=== PATIENT | male | born 1980 | race Caucasian/White ===

== ENCOUNTER 2020-02-06 17:42 | Emergency (ER) | payer OTHER, SELFPAY ==
--- NOTE | ~2020-02-06 | XR_ITS ---
EXAMINATION: XR chest 2V 02/06/2020 18:12 INDICATION: Dry cough. Chest congestion. Left-sided chest pain. PROCEDURE: 2 view chest COMPARISON: Chest dated 03/27/2019 FINDINGS: The lungs are clear. The cardiomediastinal silhouette is within normal limits. There are no pleural effusions. There is no pneumothorax suspected. IMPRESSION: 1: NO ACUTE CARDIOPULMONARY DISEASE. Reviewed, dictated and finalized at location A.
[2020-02-06 17:58] VITALS: BP 133/90; PULSE 76; RESP 18; TEMP 36.5; O2SAT 100
--- NOTE | 2020-02-06 18:15 | ED.GENADULT ---
HPI - General Adult General Chief complaint: Upper Respiratory Infection Stated complaint: congestion of lung History of Present Illness HPI narrative: Patient is a 39-year-old male who presents to the urgent care via POV for evaluation of painful cough that began approximately 3 weeks ago. He also reports left-sided pleuritic pain and a rattling sound with breathing. He states some days is good and some days it is really bad . Most painful day was Monday. Pain is improved since then., Patient reports taking clindamycin 3 times a day for 7 days and states symptoms improved for approximately 1 week. No relief with Tylenol. Unable to take ibuprofen due to allergy to NSAIDs. Called his PCP and had a telemetry med appointment today. PCP recommended urgent care for imaging prompting today's visit. History of pleurisy x2. He is unable to recall symptoms of pleurisy since his last episode was years ago. Denies history of COPD, bronchitis, asthma, and pneumonia. Denies current/past tobacco use. Pertinent negatives: fever, sweats, chills, change in appetite, fatigue, skin color changes, headache, nasal congestion/discharge, dizziness, lymphadenopathy, sinus problems, ear pain/drainage, chest pain, heart murmurs, heart palpitations, shortness of breath, wheezing, cyanosis, hemoptysis, hoarseness, orthopnea, pleuritic pain, nausea, vomiting, diarrhea, and myalgias. Related Data Home Medications Medication Instructions Recorded Confirmed glipizide mg 02/06/20 rizatriptan mg 02/06/20 Allergies Allergy/AdvReac Type Severity Reaction Status Date / Time prochlorperazine Allergy Unknown Unknown Verified 03/23/19 13:22 NSAIDS (Non-Steroidal AdvReac Mild Other Verified 10/11/18 18:23 Anti-Inflamma Review of Systems Review of Systems: Narrative: All other systems reviewed and are negative PMFSH Comments I have reviewed and agree with the patient's past medical, surgical, social, and family hx as documented by the RN. There is no relevant family history pertinent to the presenting complaint. Exam Narrative: Exam Narrative: GENERAL: Well-appearing, well-nourished, and in no acute distress. HEAD: Normocephalic, atraumatic. No sinus tenderness or facial swelling appreciated. EYES: PERRLA and EOMI. No evidence of erythema, swelling, or drainage. ENT: Bilateral external ears and ear canals normal. Bilateral TMs are normal.No TM perforation. Nares clear, no rhinorrhea or epistaxis. Bilateral turbinates without erythema/ swelling. Mucous membranes moist and pink. Uvula is midline without erythema and swelling. No evidence of petechial rash, cobblestoning, lesions, ulcers, erythema, swelling, exudates, peritonsillar abscess, tenting, or drooling. Breath odor and voice normal. NECK: Supple. No Lymphadenopathy or nuchal rigidity appreciated. CHEST: Bilateral lung jennings are clear to auscultation. No respiratory distress. No evidence of cough or pleuritic cp upon examination. HEART: Regular rate and rhythm. No murmur, gallop, or rub heard. EXTREMITIES: Normal range of motion. No edema. SKIN: Warm, dry, no rash. NEURO: No focal deficits. Alert and oriented x3. Course Vital Signs Vital signs: Vital Signs Temperature 97.7 F 02/06/20 17:58 Pulse Rate 76 02/06/20 17:58 Respiratory Rate 18 02/06/20 17:58 Blood Pressure 133/90 02/06/20 17:58 Pulse Oximetry 100 02/06/20 17:58 Temperature 97.7 F 02/06/20 17:58 Pulse Rate 76 02/06/20 17:58 Respiratory Rate 18 02/06/20 17:58 Blood Pressure 133/90 02/06/20 17:58 Pulse Oximetry 100 02/06/20 17:58 Medical Decision Making Medical Records Medical records reviewed: Yes I reviewed the patient's medical records. Vital Signs Vital Signs: Vital Signs Temperature 97.7 F 02/06/20 17:58 Pulse Rate 76 02/06/20 17:58 Respiratory Rate 18 02/06/20 17:58 Blood Pressure 133/90 02/06/20 17:58 Pulse Oximetry 100 02/06/20 17:58
--- NOTE | 2020-02-06 18:17 | PC.NURSE ---
[id number] went to xray
== END 2020-02-06 19:00 | disposition home or self-care (01) ==
PROVIDERS: Emergency Provider Nurse Practitioner Family
DX: R09.1 Pleurisy (principal); K76.0 Fatty (change of) liver, not elsewhere classified; E11.9 Type 2 diabetes mellitus without complications
CPT/HCPCS: 71046; 99213; G0463

== ENCOUNTER 2020-07-25 12:15 | Emergency (ER) | payer OTHER, SELFPAY ==
[2020-07-25 12:28] VITALS: BP 144/82; PULSE 98; RESP 16; TEMP 37.1; O2SAT 99
--- NOTE | 2020-07-25 12:37 | ED.GENADULT ---
HPI - General Adult General Chief complaint: Upper Respiratory Infection Stated complaint: possible sinus infection Time Seen by Provider: 07/25/20 12:37 Source: patient and RN notes reviewed Mode of arrival: ambulatory Limitations: no limitations History of Present Illness HPI narrative: 40-year-old male presents with complaints of upper respiratory infection, sneezing, facial congestion, facial pressure, intermittent headache (not the worst of his life) and intermittent dizziness for the past 2.5 weeks. Flonase and Claritin with some relief. No facial swelling. No cough. Nasal congestion and rhinorrhea. No sore throat. No high fevers, drooling, neck or throat swelling. No voice change. No nausea, vomiting, or abdominal pain. Tolerating liquids well. Denies chills, dyspnea, difficulty swallowing, jaw pain, dental pain, foreign body sensation, and rash. Exacerbating factors of dizziness consist of changing position too fast turning head from side to side too fast. Relieving factors is sitting still. Denies ear pain, ear itching, ear trauma, trauma to head, syncopal episodes, altered vision, altered speech, confusion, or seizure activity. Denies numbness or tingling in extremities. Denies chest pain or dyspnea. URI symptoms as described above. The patient reports he have not been diagnosed with COVID-19. The patient reports he is not waiting for the results of a COVID-19 lab test. The patient reports he do not have fever, chills, weakness, or fatigue. The patient reports he do not have a worsening cough or shortness of breath. The patient reports he do not have any loss of taste or diarrhea. Denies recent traveling. Denies concerns for COVID-19 or exposures been home with limited outdoor exposure except for essential household needs, work, and return home. At this time, patient is not suspected of having COVID-19. Some parts of this dictation were generated by voice recognition software and may contain typographical and/or grammatical inaccuracies. Related Data Home Medications Medication Instructions Recorded Confirmed glipizide 10 mg PO DAILY 02/06/20 07/25/20 rizatriptan 10 mg PO PRN PRN 02/06/20 07/25/20 fluticasone propionate [Flonase 1 spray INTRANASAL DAILY 07/25/20 07/25/20 Allergy Relief] Allergies Allergy/AdvReac Type Severity Reaction Status Date / Time prochlorperazine Allergy Unknown Unknown Verified 07/25/20 12:33 NSAIDS (Non-Steroidal AdvReac Mild Abdominal Verified 07/25/20 12:33 Anti-Inflamma Pain Review of Systems Review of Systems: Narrative: CONSTITUTIONAL: Denies fever, chills, sweats. EYES: Denies visual changes, redness, discharge. ENT: Complains of rhinorrhea, congestion, facial congestion and pressure. Denies sore throat, otalgia. CARDIOVASCULAR: Denies chest pain, palpitations, edema. RESPIRATORY: Denies dyspnea, wheezing, cough. GASTROINTESTINAL: Denies abdominal pain, nausea, vomiting, diarrhea. GENITOURINARY: Denies dysuria, hematuria, abnormal discharge SKIN: Denies rash or itching. MUSCULOSKELETAL: Denies acute back pain, joint pain, or myalgia. NEUROLOGIC: Denies numbness, or focal weakness. Complains of intermittent [place] and dizziness. PSYCHIATRIC: Denies anxiety or depression. All other systems reviewed & are unremarkable except as noted in HPI and below. [facility] Past Medical History Medical History (Updated 07/25/20 @ 12:55 by KYLER Moya) Diabetes History of sinus problem Hx of migraines Kidney stones Sleep apnea with use of continuous positive airway pressure (CPAP) Surgical History Surgical History (Updated 07/25/20 @ 12:49 by KYLER Moya) History of oral surgery Family History Family History (Updated 07/25/20 @ 12:50 by KYLER Moya) Father Lung cancer Mother Diabetes mellitus Social History Social History (Updated 07/25/20 @ 12:50 by KYLER Moya) Smoking status: Former smoker Tobacco type:
[2020-07-25 12:58] VITALS: BP 124/86; PULSE 89
[2020-07-25 13:00] VITALS: BP 118/90; BP 122/88; PULSE 101; PULSE 92
== END 2020-07-25 13:10 | disposition home or self-care (01) ==
PROVIDERS: Emergency Provider Nurse Practitioner Family
DX: R42 Dizziness and giddiness (principal); J01.00 Acute maxillary sinusitis, unspecified; Z87.891 Personal history of nicotine dependence; E11.9 Type 2 diabetes mellitus without complications; G47.30 Sleep apnea, unspecified
CPT/HCPCS: 99213; G0463

== ENCOUNTER 2021-10-05 13:19 | Emergency (ER) | payer OTHER, SELFPAY ==
[2021-10-05 13:28] VITALS: BP 130/93; PULSE 97; RESP 16; TEMP 37.3; O2SAT 99
--- NOTE | 2021-10-05 13:56 | ED.URI ---
HPI - URI/Sore Throat General Chief Complaint: Upper Respiratory Infection Stated Complaint: Sinus Time Seen by Provider: 10/05/21 13:56 Source: patient and RN notes reviewed Mode of arrival: ambulatory Limitations: no limitations History of Present Illness HPI Narrative: Ankit is a 41-year-old male patient who ambulated into the [facility]. Patient has a 5-day history of sore throat and nasal congestion. Patient states his sore throat lasted 3 days and is now better. Patient states his sinuses pressure and drainage has stayed the same. He does use a CPAP at night. Patient has used DayQuil at home. MD elicited complaint: nasal congestion Related Data Home Medications Medication Instructions Recorded Confirmed rizatriptan 10 mg PO DAILY 10/05/21 10/05/21 semaglutide [Rybelsus] 3 mg PO DIRECTED 10/05/21 10/05/21 semaglutide [Rybelsus] 7 mg PO DAILY 10/05/21 10/05/21 Allergies Allergy/AdvReac Type Severity Reaction Status Date / Time prochlorperazine Allergy Unknown Unknown Verified 10/05/21 13:30 NSAIDS (Non-Steroidal AdvReac Mild Abdominal Verified 10/05/21 13:30 Anti-Inflamma Pain Review of Systems Review of Systems: CONSTITUTIONAL: Denies body aches, fever, chills, or sweats. EYES: Denies visual changes, redness, or discharge. ENT: + rhinorrhea,+ congestion,+ sore throat, denies otalgia. CARDIOVASCULAR: Denies chest pain, palpitations, or edema. RESPIRATORY: Denies cough or dyspnea. GASTROINTESTINAL: Denies abdominal pain, nausea, vomiting, or diarrhea. GENITOURINARY: Denies dysuria or hematuria. SKIN: Denies rash, itching, or wounds. MUSCULOSKELETAL: Denies back pain, joint pain, or myalgia. NEUROLOGIC: Denies headache, numbness, tingling, or weakness. PSYCH: Denies depression or anxiety. All systems reviewed & are unremarkable except as noted in HPI and below PMFSH Past Medical History Medical History Diabetes History of sinus problem Hx of migraines Kidney stones Sleep apnea with use of continuous positive airway pressure (CPAP) Surgical History Surgical History History of oral surgery Family History Family History Father Lung cancer Mother Diabetes mellitus Social History Social History Smoking status: Former smoker Tobacco type: cigarettes Smoking end date: 10/30/11 Alcohol intake: current Substance use: current Substance use type: marijuana Gender identity (if verbalized by the patient): Male Comments At time of signature, I have reviewed and agree with nursing past medical, surgical, social and family history unless otherwise noted. Please see nursing chart for further information. There is no relevant family history pertinent to the presenting complaint Exam Narrative: GENERAL: Well-appearing, well-nourished, and in no acute distress. HEAD: Normocephalic, atraumatic. EYES: EOMI. No redness or drainage. Conjunctivae normal. ENT: Mucous membranes pink and moist. Nasal membranes erythematous with clear drainage. Posterior pharynx is erythemic with mild edema and moderate drainage. TMs normal bilaterally. Throat normal. Uvula midline. NECK: Normal AROM. Supple. No lymphadenopathy. CHEST: No respiratory distress. Clear to auscultation. MUSCULOSKELETAL: No bony tenderness. EXTREMITIES: Normal range of motion. No edema. SKIN: Warm, dry, no rash. Capillary refill normal. Normal skin turgor. NEURO: No focal deficits. Alert and oriented x3. Gait steady. PSYCH: Normal affect. No signs of depression or anxiety. Course Vital Signs Vital signs: Vital Signs Temperature 37.3 C 10/05/21 13:28 Pulse Rate 97 10/05/21 13:28 Respiratory Rate 16 10/05/21 13:28 Blood Pressure 130/93 H 10/05/21 13:28 Pulse Oximetry 99 10/05/21 13:2
== END 2021-10-05 14:13 | disposition home or self-care (01) ==
PROVIDERS: Emergency Provider Nurse Practitioner Family
DX: J00 Acute nasopharyngitis [common cold] (principal); Z87.891 Personal history of nicotine dependence; E11.9 Type 2 diabetes mellitus without complications; G47.30 Sleep apnea, unspecified
CPT/HCPCS: 99211; G0463

== ENCOUNTER 2021-12-12 08:53 | Emergency (ER) | payer OTHER, SELFPAY ==
--- NOTE | ~2021-12-12 | CT_ITS ---
EXAMINATION: CT abdomen pelvis wo con DATE: 12/12/2021 09:35 INDICATION: Low abdominal pain. Right flank pain. Nausea. Diarrhea. TECHNIQUE: Computed tomography (CT) of the abdomen and pelvis was performed without intravenous contr ast. Automated exposure control and iterative reconstruction technique were employed. The dose-length product was 454.56 mGy-cm. COMPARISON: None. FINDINGS: The visualized portions of the lung bases demonstrate mild atelectasis. No pleural effusion . The heart size is normal. No pericardial effusion. There is diffuse hepatic steatosis. The gallblad gee, spleen, pancreas, and adrenal glands are normal. There is mild right hydronephrosis and hydroure ter. There is a 4 mm stone in proximal right ureter. There are 2 mm and 1 mm stones in left kidney. T here are no dilated loops of bowel. The appendix is normal. There are no pathologically enlarged lymp h nodes. There is no free intraperitoneal fluid. There is mild thoracolumbar spondylosis. IMPRESSION: 1. 4 mm stone in proximal right ureter with mild right hydronephrosis and proximal hydroureter. 2. Small nonobstructing left kidney stones. Reviewed, dictated and finalized at location A. IMPRESSION: 1. 4 mm stone in proximal right ureter with mild right hydronephrosis and proxi mal hydroureter. 2. Small nonobstructing left kidney stones.
[2021-12-12 08:59] VITALS: BP 121/97; PULSE 87; RESP 20; TEMP 37.1; O2SAT 100
[2021-12-12 09:13] LABS: Basophils Percent Auto 0.4 % (0.2-1.2); Eosinophils Absolute Auto 0.1 K/mm3 (0-0.3); Eosinophils Percent Auto 1.7 % (0-4.4); Hematocrit 47.2 % (42.0-52.0); Hemoglobin 16.5 g/dL (14.0-18.0); Immature Granulocyte Absolute 0.01 K/mm3 (0.00-0.031); Immature Granulocyte Percent A 0.1 % (0-0.5); Lymphocytes Absolute Auto 2.13 K/mm3 (0.9-3.2); Lymphocytes Percent Auto 30.8 % (18.3-44.2); Mean Corpuscular Hemoglobin 28.9 pg (26-34); Mean Corpuscular Volume 82.8 fl (80-100); Mean Platelet Volume 10.1 fl (7.4-10.4); Monocytes Absolute Auto 0.4 K/mm3 (0.1-0.6); Monocytes Percent Auto 6.2 % (2.6-8.5); Neutrophils Absolute Auto 4.2 K/mm3 (1.3-6.7); Neutrophils Percent Auto 60.8 % (45.5-73.1); Platelet Count Result 187 k/mm3 (150-375); Red Cell Distribution Width 12.4 % (11.5-14.5); White Blood Count 6.9 K/mm3 (4.5-10.0)
[2021-12-12 09:23] LABS: Alanine Aminotransferase 44 U/L (4-50); Albumin Level 4.7 g/dL (3.5-5.1); Alkaline Phosphatase 78 U/L (38-126); Anion Gap 13 mmol/L (8-16); Aspartate Amino Transferase 31 U/L (17-59); Bilirubin,Total 1.2 mg/dL (0.2-1.3); Blood Urea Nitrogen 10 mg/dL (9-20); Calcium 9.5 mg/dL (8.4-10.2); Carbon Dioxide 24 mmol/L (22-30); Chloride 103 mmol/L (98-107); Estimated CRCL calculation 69 ml/min; Estimated Glomerular Filt Rate > 60; Glucose 161 mg/dL (65-110); Lipase 306 U/L (23-300); Potassium 3.7 mmol/L (3.4-5.0); Sodium 140 mmol/L (137-145)
--- NOTE | 2021-12-12 09:48 | ED.ABDPAIN ---
HPI - Abdominal Pain General Chief Complaint: Abdominal Pain Stated Complaint: abd pain/flank pain Time Seen by Provider: 12/12/21 09:20 Source: patient and family Limitations: no limitations History of Present Illness HPI narrative: Patient is 41 years old white male presents with pain at the right abdomen right flank that started few hours prior to arrival associated with nausea and vomiting. History of kidney stone. Patient denies any fever, chills. Related Data Home Medications Medication Instructions Recorded Confirmed rizatriptan 10 mg PO DAILY 10/05/21 10/05/21 semaglutide [Rybelsus] 3 mg PO DIRECTED 10/05/21 10/05/21 semaglutide [Rybelsus] 7 mg PO DAILY 10/05/21 10/05/21 Allergies Allergy/AdvReac Type Severity Reaction Status Date / Time prochlorperazine Allergy Unknown Unknown Verified 10/05/21 13:30 NSAIDS (Non-Steroidal AdvReac Mild Abdominal Verified 10/05/21 13:30 Anti-Inflamma Pain Review of Systems Review of Systems: CONSTITUTIONAL: Denies fever, chills, or sweats. EYES: Denies visual changes, redness, or discharge. ENT: Denies rhinorrhea, congestion, sore throat, or otalgia. CARDIOVASCULAR: Denies chest pain, palpitations, or edema. RESPIRATORY: Denies cough or dyspnea. GASTROINTESTINAL: Denies abdominal pain, nausea, vomiting, or diarrhea. GENITOURINARY: Denies dysuria or hematuria. SKIN: Denies rash or itching. MUSCULOSKELETAL: Denies back pain, joint pain, or myalgia. NEUROLOGIC: Denies headache, numbness, or weakness. PSYCHIATRIC: Denies anxiety or depression. [facility] Past Medical History Medical History Diabetes History of sinus problem Hx of migraines Kidney stones Sleep apnea with use of continuous positive airway pressure (CPAP) Surgical History Surgical History History of oral surgery Family History Family History Father Lung cancer Mother Diabetes mellitus Social History Social History Smoking status: Former smoker Tobacco type: cigarettes Smoking end date: 10/30/11 Alcohol intake: current Substance use: current Substance use type: marijuana Gender identity (if verbalized by the patient): Male Exam Narrative: General appearance: Well-developed, well-nourished Skin: Normal color Head: Normocephalic, nontraumatic Eyes: Clear conjunctiva ENT: Oropharynx normal, ears normal, nose normal Neck: Supple, nontender Chest and respiratory: Airway patent, no respiratory distress, no accessory muscle use Heart: Regular rate/rhythm Abdomen: Moderate tenderness right flank and right abdomen Vascular: Normal peripheral pulses, normal capillary refill. Musculoskeletal: Normal range of motion, nontender back Neurologic: Alert and oriented ?3, [employer] is normal as tested, no gross motor deficit Course Course Emergency Course: Improving Patient presents with pain at the right flank area, right abdomen, CT scan showed 4 mm right proximal ureter, Patient received normal saline 1 L, Toradol 30 mg IV, Dilaudid 0.5 mg IV, Zofran 4 mg IV and 0.4 mg of Flomax orally. Currently patient is pain-free. Patient was advised to strain his urine and to follow-up with urologist as soon as possible. Vital Signs Vital signs: Vital Signs Temperature 37.1 C 12/12/21 08:59 Pulse Rate 87 12/12/21 08:59 Respiratory Rate 20 12/12/21 08:59 Blood Pressure 121/97 H 12/12/21 08:59 Pulse Oximetry 100 12/12/21 08:59 Temperature 37.1 C 12/12/21 08:59 Pulse Rate 87 12/12/21 08:59 Respirator
[2021-12-12 09:57] LABS: Add Urine Microscopic? YES; Appearance Urine Cloudy (Clear); Bilirubin Urine 1+ (Negative); Blood Urine 3+ (Negative); Color Urine Amber (Yellow); Glucose Urine UA Negative (Negative); Ketones Urine 1+ mg/dL (Negative); Leukocyte Esterase Ur Negative LEU/UL (Negative); Nitrate Urine Negative (Negative); Protein Urine 2+ mg/dL (Negative); Specific Grav Ur 1.025 (1.001-1.035); Urobilinogen Urine 0.2 mg/dL (<2.0); pH Urine 5.5 (5.0-9.0)
[2021-12-12 09:59] LABS: Bacteria Urine Trace /hpf; Budding Yeast Urine Present /hpf; Mucus Urine Rare /lpf; RBC Urine >75 /hpf (0-2); WBC Urine 0-3 /hpf
[2021-12-12] MEDS: SODIUM CHLORIDE 0.9% IV 1,000 ML 999 ML IV CONT (10:20)
[2021-12-12] MEDS: TAMSULOSIN HCL 0.4 MG CAPSULE PO (10:21)
[2021-12-12] MEDS: KETOROLAC 30 MG/ML VIAL (*BKC) IV PUSH (10:21)
[2021-12-12] MEDS: ONDANSETRON INJ 4 MG/2 ML VIAL IV PUSH (10:21)
[2021-12-12 11:27] VITALS: BP 142/88; PULSE 78; RESP 18; O2SAT 98
== END 2021-12-12 11:29 | disposition home or self-care (01) ==
PROVIDERS: Emergency Provider Emergency Medicine
DX: N13.2 Hydronephrosis with renal and ureteral calculous obstruction (principal); E11.9 Type 2 diabetes mellitus without complications; G47.30 Sleep apnea, unspecified; Z87.442 Personal history of urinary calculi; Z87.891 Personal history of nicotine dependence; Z79.84 Long term (current) use of oral hypoglycemic drugs
CPT/HCPCS: 36415; 74176; 80053; 81001; 83690; 85025; 96361; 96374; 96375; 99284; A9270; J1885; J2405; J7030

== ENCOUNTER 2022-02-03 15:49 | Emergency (ER) | payer OTHER, SELFPAY ==
[2022-02-03 15:58] VITALS: BP 120/80; PULSE 94; RESP 16; TEMP 36.4; O2SAT 99
--- NOTE | 2022-02-03 16:03 | ED.URI ---
HPI - URI/Sore Throat General Chief Complaint: Upper Respiratory Infection Stated Complaint: Cough,congestion Time Seen by Provider: 02/03/22 16:05 Source: patient and RN notes reviewed Mode of arrival: ambulatory Limitations: no limitations History of Present Illness HPI Narrative: 41 y/o male presented for c/o sinus congestion, scratchy left throat, and nonproductive cough for at least one week. Endorses history of 'completely clogged left sinuses' about one year ago. Takes daily Zyrtec and used neti pot today, has been using DayQuil and NyQuil for symptoms. Denies sob, wheezing, n/v/d/f/c. Denies sick contacts. Vaccinated for flu, boosted for Covid. MD elicited complaint: cough Related Data Home Medications Medication Instructions Recorded Confirmed semaglutide [Rybelsus] 3 mg PO DIRECTED 10/05/21 02/03/22 atorvastatin 10 mg PO DAILY 02/03/22 02/03/22 rizatriptan 10 mg PO DIRECTED 02/03/22 02/03/22 Allergies Allergy/AdvReac Type Severity Reaction Status Date / Time prochlorperazine Allergy Unknown Unknown Verified 02/03/22 15:58 NSAIDS (Non-Steroidal AdvReac Mild Abdominal Verified 02/03/22 15:58 Anti-Inflamma Pain Review of Systems Review of Systems: CONSTITUTIONAL: denies malaise, chills, sweats, fever EYES: Denies visual changes, redness, or discharge ENT: Reports rhinorrhea, congestion, denies sinus pain, otalgia, sore throat CARDIOVASCULAR: Denies chest pain, palpitations, edema RESPIRATORY: Reports cough, post nasal drainage. Denies dyspnea GASTROINTESTINAL: Denies abdominal pain, nausea, vomiting, diarrhea SKIN: Denies rash or itching MUSCULOSKELETAL: denies myalgia NEUROLOGIC: Denies headache PMFSH Past Medical History Medical History Diabetes History of sinus problem Hx of migraines Kidney stones Sleep apnea with use of continuous positive airway pressure (CPAP) Surgical History Surgical History History of oral surgery Family History Family History Father Lung cancer Mother Diabetes mellitus Social History Social History Smoking status: Former smoker Tobacco type: cigarettes Smoking end date: 10/30/11 Alcohol intake: current Substance use: current Substance use type: marijuana Gender identity (if verbalized by the patient): Male Exam Narrative: GENERAL:well appearing HEAD: Normocephalic EYES: conjunctivae clear ENT: Mucous membranes moist. TM pearly jackson with dull light reflex bilaterally; no tragal tenderness. Oropharynx erythematous without lesions or exudate, no drooling, no hoarseness, no trismus, uvula midline. No tripod positioning, muffled voice, soft palate or pharyngeal wall bulging NECK: Supple. No lymphadenopathy CHEST: Clear to auscultation, breath sounds equal. No wheezing, rhonchi, rales, or stridor. No respiratory distress, speaks in full sentences. HEART: Regular rate and rhythm. No murmur heard. SKIN: Warm, dry, no rash. NEURO: Alert and oriented x3. PSYCH: Normal mood and affect Course Course Emergency Course: Patient is aware of diagnosis, understands and agrees to treatment plan. Anticipatory guidance given. Patient agrees to follow-up as directed and is aware of reasons to seek care at the emergency department. Portions of this record may have been created with voice recognition software Level of Care: Express Care Visit Vital Signs Vital signs: Vital Signs Temperature 97.6 F 02/03/22 15:58 Pulse Rate 94 02/03/22 15:58 Respiratory Rate 16 02/03/22 15:58 Blood Pressure 120/80 02/03/22 15:58 Pulse Oximetry 99 02/03/22 15:58 Temperature 97.6 F 02/03/22 15:58 Pulse Rate 94 02/03/22 15:58 Respiratory Rate 16 02/03/22 15:58 Blood Pressure 120/80 02/03/22 15:58 Pulse Oximetry 99 04
== END 2022-02-03 16:20 | disposition home or self-care (01) ==
PROVIDERS: Emergency Provider Nurse Practitioner Family
DX: J06.9 Acute upper respiratory infection, unspecified (principal); Z87.891 Personal history of nicotine dependence; E11.9 Type 2 diabetes mellitus without complications; G47.33 Obstructive sleep apnea (adult) (pediatric)
CPT/HCPCS: 99213; G0463

== ENCOUNTER 2023-02-28 07:46 | Emergency (ER) | payer OTHER, SELFPAY ==
[2023-02-28] VITALS (7 sets, daily range): BP systolic 105–139; BP diastolic 77–92; PULSE 90–103; RESP 12–20; TEMP 36.6; O2SAT 96–100
--- NOTE | ~2023-02-28 | CT_ITS ---
EXAMINATION: CT abdomen pelvis wo con DATE: 02/28/2023 08:08 INDICATION: Left flank pain. TECHNIQUE: Computed tomography (CT) of the abdomen and pelvis was performed without intravenous contr ast. Automated exposure control and iterative reconstruction technique were employed. The dose-length product was 216.22 mGy-cm. COMPARISON: CT abdomen and pelvis 12/12/2021 FINDINGS: The visualized portions of the lung bases demonstrate minimal atelectasis. No pleural effus ion. The heart size is normal. No pericardial effusion. The liver, gallbladder, spleen, pancreas, adr enal glands, and right kidney are normal. There is mild left hydronephrosis. There is a 4 mm stone in proximal left ureter. The prostate is mildly enlarged. The appendix is normal. There are no dilated loops of bowel. There are no pathologically enlarged lymph nodes. There is no free intraperitoneal fl uid. There is mild thoracolumbar spondylosis. IMPRESSION: 1. 4 mm stone in proximal left ureter with mild left hydronephrosis. Reviewed, dictated and finalized at location A.
--- NOTE | 2023-02-28 07:56 | ED.ABDPAIN ---
HPI - Abdominal Pain General Chief Complaint: Abdominal Pain Stated Complaint: abd pain Time Seen by Provider: 02/28/23 07:51 History of Present Illness HPI narrative: 42yoM h/o kidney stones p/w severe pain, n/v starting this AM L flank radiating to groin. Feels like kidney stone but more anterior and on L, worse than usual. Related Data Home Medications Medication Instructions Recorded Confirmed semaglutide 3 mg tablet (Rybelsus) 3 mg PO DIRECTED 10/05/21 02/03/22 atorvastatin 10 mg tablet 10 mg PO DAILY 02/03/22 02/03/22 rizatriptan 10 mg disintegrating 10 mg PO DIRECTED 02/03/22 02/03/22 tablet Allergies Allergy/AdvReac Type Severity Reaction Status Date / Time prochlorperazine Allergy Unknown Unknown Verified 02/28/23 08:05 NSAIDS (Non-Steroidal AdvReac Mild Abdominal Verified 02/28/23 08:05 Anti-Inflamma Pain Review of Systems Review of Systems: CONST: No fever. HEENT: No sore throat C/V: No chest pain RESP: No cough GI: Reports abdominal pain, nausea, vomiting : Left leg pain M/S: Back pain SKIN: No rash. NEURO: [No headache or focal numbness or weakness] PSYCH: [No depression] [facility] Past Medical History Medical History Diabetes History of sinus problem Hx of migraines Kidney stones Sleep apnea with use of continuous positive airway pressure (CPAP) Surgical History Surgical History History of oral surgery Family History Family History Father Lung cancer Mother Diabetes mellitus Social History Social History Smoking status: Former smoker Tobacco type: cigarettes Smoking end date: 10/30/11 Alcohol intake: current Substance use: current Substance use type: marijuana Living arrangements: with family Occupation/Education: occupation Gender identity (if verbalized by the patient): Male Exam Narrative: EXAMINATION OF ORGAN SYSTEMS/BODY AREAS: Constitutional: Vital signs per nursing GENERAL: Appears quite uncomfortable in bed with emesis bag HEAD: Normal with no signs of head trauma. EYES: EOMI, conjunctiva normal ENT: Hearing grossly intact LUNGS: Nonlabored breathing. HEART: [Regular rate and rhythm] ABD: [Soft], [minimally tender to palpation L flank] : No swelling/tenderness to scrotum EXT: Normal range of motion SKIN: [No rashes or lesions.] NEURO: [Alert and oriented x 3. No gross focal sensory or strength deficits.] PSYCH: Normal affect Course Vital Signs Vital signs: Vital Signs Temperature 97.9 F 02/28/23 08:02 Pulse Rate 103 H 02/28/23 08:02 Respiratory Rate 20 02/28/23 08:02 Blood Pressure 139/92 H 02/28/23 08:02 Pulse Oximetry 100 02/28/23 08:02 Oxygen Delivery Room Air 02/28/23 08:02 Temperature 97.9 F 02/28/23 08:02 Pulse Rate 90 02/28/23 09:34 Respiratory Rate 16 02/28/23 10:31 Blood Pressure 105/77 02/28/23 10:31 Pulse Oximetry 98 02/28/23 10:31 Oxygen Delivery Room Air 02/28/23 08:02 MDM - Abdominal Pain MDM Narrative Medical decision making narrative: ED COURSE AND MEDICAL DECISION MAKIN-year-old presenting to the emergency department for acute flank pain, symptoms are concerning for likely renal colic versus pyelonephritis. Urinalysis is ordered. Zofran, Tylenol are ordered, Patient declines any stronger pain medicine. CT scan of the abdomen/pelvis is ordered. Labs are remarkable for: Normal creatinine, blood in urine. CT scan of the abdomen/pelvis is reviewed by myself and interpreted by radiology: 4 mm stone left Proximal ureter. On reevaluation, the patient still having some pain but appears more comfortable. She decision-making the patient regarding admission for pain control versus follow-up with urology outpatient, and he would prefer to follow-up outpat
[2023-02-28 08:05] LABS: Basophils Percent Auto 0.6 % (0.2-1.2); Eosinophils Absolute Auto 0.1 K/mm3 (0-0.3); Hematocrit 45.4 % (42.0-52.0); Hemoglobin 15.9 g/dL (14.0-18.0); Immature Granulocyte Absolute 0.02 K/mm3 (0.00-0.031); Immature Granulocyte Percent A 0.3 % (0-0.5); Lymphocytes Absolute Auto 1.77 K/mm3 (0.9-3.2); Lymphocytes Percent Auto 25.5 % (18.3-44.2); Mean Corpuscular Hemoglobin 29.7 pg (26-34); Mean Corpuscular Volume 84.9 fl (80-100); Mean Platelet Volume 10.5 fl (7.4-10.4); Monocytes Absolute Auto 0.4 K/mm3 (0.1-0.6); Monocytes Percent Auto 6.3 % (2.6-8.5); Neutrophils Absolute Auto 4.6 K/mm3 (1.3-6.7); Neutrophils Percent Auto 66.3 % (45.5-73.1); Platelet Count Result 184 k/mm3 (150-375); Red Blood Count 5.35 M/mm3 (4.6-6.20); Red Cell Distribution Width 12.8 % (11.5-14.5)
[2023-02-28] MEDS: ONDANSETRON INJ 4 MG/2 ML VIAL IV PUSH (08:13)
[2023-02-28 08:16] LABS: Alanine Aminotransferase 23 U/L (6-50); Alkaline Phosphatase 62 U/L (38-126); Anion Gap 10 mmol/L (8-16); Aspartate Amino Transferase 25 U/L (17-59); Bilirubin,Total 1.3 mg/dL (0.2-1.3); Blood Urea Nitrogen 15 mg/dL (9-20); Calcium 9.2 mg/dL (8.4-10.2); Carbon Dioxide 28 mmol/L (22-30); Chloride 103 mmol/L (98-107); Estimated CRCL calculation 68 ml/min; Estimated Glomerular Filt Rate > 60; Glucose 158 mg/dL (65-110); Potassium 3.8 mmol/L (3.4-5.0); Sodium 141 mmol/L (137-145)
[2023-02-28 10:27] LABS: Appearance Urine Clear (Clear); Bacteria Urine None Seen /hpf; Bilirubin Urine Negative (Negative); Blood Urine 3+ (Negative); Color Urine Yellow (Yellow); Glucose Urine UA Negative (Negative); Ketones Urine Trace mg/dL (Negative); Leukocyte Esterase Ur Negative LEU/UL (Negative); Nitrate Urine Negative (Negative); Non Pathogenic Casts 0-2; Protein Urine Trace mg/dL (Negative); RBC Urine 21-50 /hpf (0-2); Specific Grav Ur 1.021 (1.001-1.035); Squamous Epithelial Cell Urine None seen /hpf (Few); WBC Urine 0-5 /hpf
[2023-02-28 10:29] LABS: Add Urine Microscopic? YES
== END 2023-02-28 10:53 | disposition home or self-care (01) ==
PROVIDERS: Emergency Provider Emergency Medicine
DX: N13.2 Hydronephrosis with renal and ureteral calculous obstruction (principal); E11.9 Type 2 diabetes mellitus without complications; G47.30 Sleep apnea, unspecified; Z87.442 Personal history of urinary calculi; Z87.891 Personal history of nicotine dependence; Z79.85 Long-term (current) use of injectable non-insulin antidiabetic drugs
CPT/HCPCS: 36415; 74176; 80053; 81001; 85025; 96374; 96375; 99284; J0131; J2405

== ENCOUNTER 2024-10-21 13:15 | Emergency (ER) | payer OTHER, SELFPAY ==
[2024-10-21 13:27] VITALS: BP 125/81; PULSE 103; RESP 16; TEMP 36.7; O2SAT 99
--- NOTE | 2024-10-21 14:10 | ED.URI ---
HPI - URI/Sore Throat General Chief Complaint: Upper Respiratory Infection Stated Complaint: Cough/Sore Throat Time Seen by Provider: 10/21/24 14:10 Source: patient, RN notes reviewed and old records reviewed Mode of arrival: ambulatory Limitations: no limitations History of Present Illness HPI Narrative: 44-year-old male presents to the [facility] with a sore throat and a cough that started yesterday. Had taken a dose of Mucinex as well as DayQuil. No treatment today. Treatments prior to arrival: cold medicine Related Data Home Medications ?Medication ?Instructions ?Recorded ?Confirmed ?Last Taken ?Type semaglutide 3 mg tablet (Rybelsus) 3 mg PO DIRECTED 10/05/21 10/21/24 Unknown History atorvastatin 10 mg tablet 10 mg PO DAILY 02/03/22 10/21/24 Unknown History rizatriptan 10 mg disintegrating 10 mg PO DIRECTED 02/03/22 10/21/24 Unknown History tablet Allergies Allergy/AdvReac Type Severity Reaction Status Date / Time prochlorperazine Allergy Unknown Unknown Verified 02/28/23 08:05 NSAIDS (Non-Steroidal AdvReac Mild Abdominal Verified 02/28/23 08:05 Anti-Inflamma Pain Review of Systems Review of Systems: All systems reviewed & are unremarkable except as noted in HPI and below Constitutional: Constitutional: Reports no additional constitutional complaints ENT: Reports as per HPI and Reports sore throat Cardiovascular: Cardiovascular: Reports no additional cardiovascular complaints, Denies chest pain and Denies dyspnea Respiratory: Respiratory: Reports as per HPI, Denies chest congestion, Reports cough and Denies dyspnea Musculoskeletal: Musculoskeletal: Reports no additional musculoskeletal complaints Integumentary/Breasts: Skin/Breast: Reports system reviewed and no additional complaints, except as docu PMFSH Past Medical History Medical History History of sinus problem Sleep apnea with use of continuous positive airway pressure (CPAP) Kidney stones Hx of migraines Diabetes Surgical History Surgical History History of oral surgery Family History Family History Father Lung cancer Mother Diabetes mellitus Social History Social History (Reviewed 10/21/24 @ 18:45 by FLAVIO Jameson Smoking status: Former smoker Tobacco type: cigarettes Smoking end date: 10/30/11 Alcohol intake: current Substance use: current Substance use type: marijuana Living arrangements: with family Occupation/Education: occupation Gender identity (if verbalized by the patient): Male Comments At the time of my signature, I reviewed and agree with the nursing past medical, surgical, social, and family history. There is no relevant family history pertinent to the patient complaint. Exam Const: General: cooperative, healthy appearing, comfortable, no acute distress, well developed, alert and well nourished Nutritional Appearance: well nourished Orientation/consciousness: patient oriented x3 Limitations: no limitations HENMT: Head: normal to inspection Ears: hearing grossly normal bilaterally, external ears normal, TM's normal bilaterally, EAC's normal, mastoids normal and no periauricular adenopathy Face/Nose/Sinus: normal facial exam and face symmetric Face and sinus: normal facial exam and face symmetric Mouth: Yes Normal oral and palatal mucosa present, Yes lip normal, Yes tongue normal and Yes moist mucous membranes Throat: posterior oropharynx normal, uvula midline, postnasal drainage and no uvular edema Eyes: General: appearance normal, both eyes and all related structures Neck: Neck: normal visual inspection, full ROM, no lymphadenopathy and no meningeal signs Chest: Chest palpation & inspection: normal inspection of the chest Resp: Effort & Inspection: normal respiratory effort and able to speak in complete sentences Auscultation: clear to auscultation bilaterally, no crackles, no rales, no rhonchi and no wheezes Cardio: Rate: regular rate Skin: General skin exam: normal color and no rashes or lesions noted Neuro: General: patient oriented x3, gait normal, moves all extremities and no meningeal signs Cognition (Neuro): normal cognition Speech: normal speech Gait exam (Neuro): Normal gait present Extrem: General: normal to inspection, full ROM, capillary refill normal and normal gait Psych: Appearance: grossly normal and well kempt Mental Status: mental status grossly normal Speech and movement: Normal speech and movement present and Clear speech present Affect: normal affect Attitude: cooperative Course Course Level of Care: Express Care Visit Vital Signs Vital signs: Vital Signs Temperature 98.1 F 10/21/24 13:27 Pulse Rate 103 H 10/21/24 13:27 Respiratory Rate 16 10/21/24 13:27 Blood Pressure 125/81 10/21/24 13:27 Pulse Oximetry 99 10/21/24 13:27 Oxygen Delivery Room Air 10/21/24 13:27 Temperature 98.1 F 10/21/24 13:27 Pulse Rate 103 H 10/21/24 13:27 Respiratory Rate 16 10/21/24 13:27 Blood Pressure 125/81 10/21/24 13:27 Pulse Oximetry 99 10/21/24 13:27 Oxygen Delivery Room Air 10/21/24 13:27 Reviewed MDM - URI/Sore Throat MDM Narrative Medical decision making narrative: Patient sitting in exam room. Nontoxic, vitals stable. Patient in no acute distress. Patient presents with 1 day history of cough and sore throat. Flu, COVID, strep are negative. No acute findings noted on exam. Patient appropriate for outpatient treatment and follow-up Discharge instructions reviewed with patient, as well as provided in writing per nursing staff. The instructions also include specific and strict return/GO TO THE ER as well as f/u information. All questions have been answered, and the patient deny any further questions with discharge and discharge plan. Some parts of this dictation were generated by voice recognition software and may contain typographical and/or grammatical inaccuracies. Differential Diagnosis Differential diagnosis: Likely upper respiratory infection, otitis media, sinusitis, viral infection, bronchitis and pharyngitis Lab Data Labs: Lab Results 10/21/24 Range/Units 14:19 POC Influenza A Ag Negative (Negative) POC Influenza B Ag Negative (Negative) POC SARS CoV-2 Ag Negative (Negative) POC Grp A Strep Screen Negative (Negative) Critical Care Time Critical Care Time Critical Care Time: No Discharge Plan Discharge Clinical Impression: PND (post-nasal drip) Upper respiratory infection Qualifiers: URI type: unspecified viral URI Qualified Code(s): J06.9 - Acute upper respiratory infection, unspecified Patient Disposition: Home, Self-Care Condition: Stable Instructions: Antibiotic Form, Upper Respiratory Infection (ED), Postnasal Drip (DC) Additional Instructions: Your rapid strep swab was negative today at [facility]. A throat culture will be sent to the laboratory for further testing. If the test is positive, you will receive a phone call within 48 hours and an appropriate antibiotic will be initiated at that time. Your rapid COVID test were negative Your rapid flu test was negative Your symptoms are likely due to a viral illness, which is not treated with antibiotics. Typically viral infections last 7-10 days, can linger for couple of weeks. It is very important to treat your symptoms. Drink plenty of water, Gatorade, Pedialyte, ice pops or Jell-O. -Alternate Tylenol and Motrin per package directions for fever or pain. You can alternate every 4 hours -Antihistamine medication such as Benadryl at night and Zyrtec/Claritin/Laxmi during the day can help improve symptoms. -doing daily nasal irrigations can help relieve pressure your sinuses. Things like a Neti pot -Use Flonase twice a day for 5 days then daily to help reduce the inflammation and dry up your sinuses. -You can also use Mucinex. Be sure to drink plenty of water with this medication at least 8 ounces with every dose and it is important to drink 8 to 10 glasses of water per day. Water is a natural decongestant -Eat and drink things that are easy to swallow, like tea or soup, or popsicles. -Oral rinses such as: Salt water gargles and/or may use topical anesthetic (eg. Chloraseptic spray) or lozenges to relieve dryness or throat pain). -Frequent hand washing or hand diversity intern is one of the best ways to prevent spread of infection. -Using a vaporizer or humidifier at night will also help thin secretions and help with coughing up phlegm. -Follow up with primary care provider in 7-10 days if condition is not improving - For new or worsening symptoms go directly to the nearest ER Patient Language: Tongan Prescriptions: No Action Rybelsus 3 mg tablet 3 mg PO DIRECTED atorvastatin 10 mg tablet 10 mg PO DAILY rizatriptan 10 mg tablet,disintegrating 10 mg PO DIRECTED benzonatate 200 mg capsule 200 mg PO TID PRN (Reason: cough) Qty: 20 0RF acetaminophen [Tylenol Extra Strength] 500 mg tablet 1,000 mg PO Q6H PRN (Reason: pain) 7 Days Qty: 50 0RF Follow-up/Referrals: Emily Campos DO [Physician] - 1 Week (express care follow up ) PHYSICIAN,AUDIO VISUAL AIDE [Primary Care Provider] - Stand Alone Forms: Work/School Release IP Time of Disposition: 14:36
[2024-10-21 14:35] LABS: EDCOVIDSCREEN Negative (Negative); EDINFLUASCREEN Negative (Negative); EDINFLUBSCREEN Negative (Negative); EDSTREPNEGPOS1 Negative (Negative)
== END 2024-10-21 14:50 | disposition home or self-care (01) ==
PROVIDERS: Emergency Provider Nurse Practitioner
DX: J06.9 Acute upper respiratory infection, unspecified (principal); E11.9 Type 2 diabetes mellitus without complications; Z87.891 Personal history of nicotine dependence; Z79.899 Other long term (current) drug therapy; Z20.822 Contact with and (suspected) exposure to COVID-19
CPT/HCPCS: 87081; 87426; 87804; 87880; 99213; G0463

== ENCOUNTER 2025-07-25 12:37 | Emergency (ER) | payer OTHER, SELFPAY ==
[2025-07-25 12:47] VITALS: BP 120/83; PULSE 103; RESP 18; TEMP 36.2; O2SAT 98
--- NOTE | 2025-07-25 13:06 | ED.URI ---
HPI - URI/Sore Throat General Chief Complaint: Upper Respiratory Infection Stated Complaint: Fatigue/Dizziness Time Seen by Provider: 07/25/25 13:06 Source: patient Mode of arrival: ambulatory Limitations: no limitations History of Present Illness HPI Narrative: 45 yo M presents with upset stomach nausea for 4 days. No vomiting. AFebrile. +fatigue. Diarrhea started this AM. Pt states BS have been elevated around 220. Called her PCP regarding elevated BS and increased rybelsius dose 3 days ago. Reports no improvement in elevated blood sugars yet. Plans to continue to monitor and will call primary care physician if needed. all systems reviewed and negative except as noted above. Related Data Home Medications ?Medication ?Instructions ?Recorded ?Confirmed ?Last Taken ?Type atorvastatin 10 mg tablet 10 mg PO DAILY 02/03/22 10/21/24 Unknown History rizatriptan 10 mg disintegrating 10 mg PO DIRECTED 02/03/22 10/21/24 Unknown History tablet semaglutide 7 mg tablet (Rybelsus) mg PO 07/25/25 Unknown History Allergies Allergy/AdvReac Type Severity Reaction Status Date / Time prochlorperazine Allergy Unknown Unknown Verified 07/25/25 12:53 NSAIDS (Non-Steroidal AdvReac Mild Abdominal Verified 07/25/25 12:53 Anti-Inflamma Pain PMFSH Past Medical History Medical History History of sinus problem Sleep apnea with use of continuous positive airway pressure (CPAP) Kidney stones Hx of migraines Diabetes Surgical History Surgical History History of oral surgery Family History Family History Father Lung cancer Mother Diabetes mellitus Social History Social History Smoking status: Former smoker Tobacco type: cigarettes Smoking end date: 10/30/11 Alcohol intake: current Substance use: current Substance use type: marijuana Living arrangements: with family Occupation/Education: occupation Gender identity (if verbalized by the patient): Male Comments At time of signature, agree with nursing past medical, surgical, social and family history. There is no relevant family history pertinent to the presenting complaint. Exam Narrative: GENERAL: This is a well-nourished, well-developed patient, in no apparent distress. HEAD: normocephalic, atraumatic. EYES: PERRL. Sclera clear/white. Vision is grossly intact. EARS: External ears normal, auditory canals clear and without drainage, TMs normal without perforation. Hearing grossly intact. NOSE: External nose normal with no obvious nasal discharge, nares without redness, no rhinorrhea. THROAT: Mucous membranes moist, posterior pharynx clear. NECK: Neck supple, non-tender without lymphadenopathy, masses or thyromegaly. CARDIOVASCULAR: Regular rate and rhythm without murmurs, gallops, or rubs. RESPIRATORY: Clear to auscultation. Breath sounds equal bilaterally. No wheezes, rales, or rhonchi. GASTROINTESTINAL: Abdomen soft, non-tender, nondistended. Bowel sounds are active. No hepato-splenomegaly, or palpable masses. No guarding. SKIN: warm, Dry, intact with no suspicious lesions or rash, good texture and turgor. NEURO: awake, alert, and oriented to person, place and time. There were no obvious focal neurologic abnormalities. EXTREMITIES: No joint tenderness, effusion, or edema noted. Course Course Level of Care: Express Care Visit Vital Signs Vital signs: Vital Signs Temperature 36.2 C L 07/25/25 12:47 Pulse Rate 103 H 07/25/25 12:47 Respiratory Rate 18 07/25/25 12:47 Blood Pressure 120/83 07/25/25 12:47 Pulse Oximetry 98 07/25/25 12:47 Oxygen Delivery Room Air 07/25/25 12:47 Temperature 36.2 C L 07/25/25 12:47 Pulse Rate 103 H 07/25/25 12:47 Respiratory Rate 18 07/25/25 12:47 Blood Pressure 120/83 07/25/25 12:47 Pulse Oximetry 98 07/25/25 12:47 Oxygen Delivery Room Air 07/25/25 12:47 Reviewed MDM - URI/Sore Throat MDM Narrative Medical decision making narrative: negative COVID and influenza. No URI symptoms. No abdominal tenderness on exam. Patient able to keep down food and fluids without vomiting. Will give Zofran to take as needed for nausea. Will continue to monitor blood sugar home. Will call primary care physician as needed. Patient is well-appearing, nontoxic. Differential Diagnosis Differential diagnosis: Likely upper respiratory infection, sinusitis, viral infection and influenza Lab Data Labs: Lab Results 07/25/25 07/25/25 Range/Units 13:23 13:24 POC Influenza A Ag Negative (Negative) POC Influenza B Ag Negative (Negative) POC SARS CoV-2 Ag Negative (Negative) Discharge Plan Discharge Clinical Impression: Viral gastroenteritis Patient Disposition: Home Condition: Stable Instructions: Gastroenteritis (ED) Additional Instructions: Your COVID and influenza test was negative today. Take Zofran as needed for nausea and vomiting. Drink at least 64 oz Of water a day. Continue to monitor blood sugars daily. If not improving follow-up with your primary care physician for further evaluation. For any worsening of your symptoms, severe abdominal pain or concern for dehydration go to the ER. Patient Language: Hong Konger Prescriptions: New ondansetron 4 mg tablet,disintegrating 4 mg PO Q8H PRN (Reason: nausea and vomiting) Qty: 12 0RF No Action atorvastatin 10 mg tablet 10 mg PO DAILY rizatriptan 10 mg tablet,disintegrating 10 mg PO DIRECTED Rybelsus 7 mg tablet PO Follow-up/Referrals: PHYSICIAN,FIELD TALENT QUALIFICATION SPECIALIST [Primary Care Provider, Internal Medicine] Stand Alone Forms: Work/School Release IP Time of Disposition: 13:32
[2025-07-25 13:24] LABS: EDCOVIDSCREEN Negative (Negative)
[2025-07-25 13:24] LABS: EDINFLUASCREEN Negative (Negative); EDINFLUBSCREEN Negative (Negative)
== END 2025-07-25 13:40 | disposition home or self-care (01) ==
PROVIDERS: Emergency Provider Nurse Practitioner Family
DX: A08.4 Viral intestinal infection, unspecified (principal); Z20.822 Contact with and (suspected) exposure to COVID-19; E11.9 Type 2 diabetes mellitus without complications; Z87.891 Personal history of nicotine dependence
CPT/HCPCS: 87426; 87804; 99213; G0463